=== PATIENT | male | born 1960 | race Hispanic/Latino ===

== ENCOUNTER 2019-12-19 06:44 | Observation (INO) | payer OTHER ==
[2019-12-16 09:42] VITALS: BMI 37.8
[2019-12-19 07:42] LABS: #Eosinphils 0.3 thou/uL (0.0-0.7); #Lymphocytes 1.4 thou/uL (1.20-3.40); #Monocytes 0.6 thou/uL (0.11-0.59); %Basophils 0.4 % (0.0-1.0); %Eosinophils 3.9 % (0.0-10.0); %Lymphocytes 19.4 % (21.0-51.0); %Monocytes 7.8 % (0.0-10.0); %Neutrophils 68.6 % (42.0-75.0); Hemoglobin 13.3 g/dL (14.0-18.0); Mean Corpuscular HGB CONC 34.3 g/dL (32.0-36.0); Mean Corpuscular Hemoglobin 30.9 pg (27.0-31.0); Mean Corpuscular Volume 90.3 fL (78.0-98.0); Mean Platelet Volume 8.6 fL (7.4-10.4); Platelet Count 191 thou/uL (130-400); RBC Distribution Width 12.5 % (11.5-14.5); White Blood Cell (WBC) Count 7.2 thou/uL (4.8-10.8)
[2019-12-19 07:55] LABS: Anion Gap 9 mmol/L (10-20); BUN (Urea Nitrogen) 14 mg/dL (8.4-25.7); Calc. Creatinine Clearance 97 mL/min (70-130); Calcium 9.1 mg/dL (7.8-10.44); Carbon Dioxide 26 mmol/L (22-29); Chloride 107 mmol/L (98-107); Estimated GFR-MDRD 64; Glucose 105 mg/dL (70-105); Potassium 4.2 mmol/L (3.5-5.1); Sodium 138 mmol/L (136-145)
[2019-12-19] MEDS ORDERED: Famotidine/PF 20 mg/2ml Vial ONE (08:28)
[2019-12-19] MEDS ORDERED: Midazolam HCl 2 mg/2 ml Vial ONE ×2 (08:36→09:18)
[2019-12-19] MEDS ORDERED: Scopolamine 1.5 mg/72 hour Patch ONE (08:36)
[2019-12-19] MEDS ORDERED: Sodium Chloride 0.9% 10 ML ONE (08:55)
[2019-12-19] MEDS ORDERED: Fentanyl 100 MCG/2 ML VIAL ONE ×4 (09:18→12:09)
[2019-12-19] MEDS ORDERED: Dexamethasone 20 MG/5 ML VIAL ONE (10:27)
[2019-12-19] MEDS ORDERED: PROPOFOL 200 MG/20 ML VIAL ONE (10:27)
[2019-12-19] MEDS ORDERED: Ondansetron PF 4 MG/2 ML Vial ONE (10:27)
[2019-12-19] MEDS ORDERED: Glycopyrrolate 0.2 MG/ML 5 ML SYRINGE ONE (10:27)
[2019-12-19] MEDS ORDERED: Rocuronium Bromide 10 MG/ML (10ML VIAL) ONE (10:27)
--- NOTE | 2019-12-19 10:59 | OP ---
DATE OF PROCEDURE: 12/19/2019 SLITTER SERVICE AND SETTER: Carole Coleman PA-C PROCEDURES PERFORMED: Anterior cervical diskectomy C4-C5, interbody arthrodesis, intervertebral biomechanical device, local morselized autograft, demineralized bone matrix, anterior titanium instrumentation, C4-C5. DESCRIPTION OF PROCEDURE: The patient was brought to the operating room and intubated. He was positioned supine with the head in modest extension on a gel-filled donut. An incision was made in the right precervical area and dissected medial to the sternocleidomastoid muscle. We identified the anterior cervical spine, and the level was confirmed by x-ray. We debrided the anterior osteophytes, placed distraction across the disk space, and completely decompressed the intervertebral disk. The bony endplates were then decorticated for the purpose of arthrodesis and appropriate-sized intervertebral biomechanical PEEK device was brought into the field. It was filled with demineralized bone matrix, local morselized autograft, and tapped in place securely at C4-C5. Next, an anterior plate was brought into the field and secured to C4 and C5 using two 14-mm screws at each level. The wound was then extensively irrigated and MAC hemostasis was secured and the wound was closed in anatomic layers over drain. Job ID: [id number]
[2019-12-19] MEDS ORDERED: Promethazine HCl 25 MG/ML VIAL IM PRN (11:13)
[2019-12-19] MEDS ORDERED: Morphine 2 MG/ML SYRINGE SLOW IVP PRN (11:13)
[2019-12-19] MEDS ORDERED: HYDROcodone/Acetaminophen 10/325 mg Tablet PO PRN (11:13)
[2019-12-19] MEDS ORDERED: Morphine 4 MG/ML VIAL SLOW IVP PRN (11:13)
[2019-12-19] MEDS ORDERED: traMADol HCl 50 MG TAB PO PRN ×2 (11:13)
[2019-12-19] MEDS ORDERED: Promethazine 25 MG TAB PO PRN (11:13)
[2019-12-19] MEDS ORDERED: Promethazine HCl 12.5 MG SUPP PR PRN (11:13)
[2019-12-19] MEDS ORDERED: Mag-Al 1200 mg/1200 mg/30 ML UDCUP PO PRN (11:13)
[2019-12-19] MEDS ORDERED: diphenhydrAMINE 50 MG/ML VIAL IVP PRN (11:13)
[2019-12-19] MEDS ORDERED: Cyclobenzaprine 10 MG TAB PO PRN (11:13)
[2019-12-19] MEDS ORDERED: diphenhydrAMINE 25 MG CAP PO PRN (11:13)
[2019-12-19] MEDS ORDERED: Ondansetron PF 4 MG/2 ML Vial IVP PRN (11:13)
[2019-12-19] MEDS ORDERED: CIALIS 5 MG PO PRN (11:22)
[2019-12-19] MEDS ORDERED: HYDROmorphone 0.5 MG/0.5 ML SYRINGE ONE ×2 (11:28→11:44)
[2019-12-19] MEDS: Sodium Chloride 0.9% 1,000 ML IV SCH ×2 (12:52→23:37)
[2019-12-19] MEDS: Cyclobenzaprine 10 MG TAB PO SCH ×2 (15:22→20:24)
[2019-12-19] MEDS: CEFAZOLIN 2 GM in Premix Bag 1 BAG IVPB SCH ×2 (16:40→23:10)
[2019-12-19] MEDS: HYDROcodone/Acetaminophen 10/325 mg Tablet PO PRN ×2 (18:03→23:09)
[2019-12-20] MEDS ORDERED: Tamsulosin HCl 0.4 MG CAP PO SCH (06:00)
[2019-12-20 08:40] VITALS: BP 142/80; TEMP 98
[2019-12-20] MEDS: Cyclobenzaprine 10 MG TAB PO SCH (08:48)
[2019-12-20] MEDS: Losartan 25 MG TAB PO SCH ×2 (08:49→08:52)
[2019-12-20] MEDS: CEFAZOLIN 2 GM in Premix Bag 1 BAG IVPB SCH (08:49)
--- NOTE | 2019-12-20 11:28 | DIS ---
DATE OF ADMISSION: 12/19/2019 DATE OF DISCHARGE: 12/20/2019 The patient is a 59-year-old male, recently evaluated in our office for progressive neck and shoulder pain. 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 Following the surgery, he was transitioned to the Med/Surg floor, where his pain has been well-controlled with p.o. medications, he is tolerating a regular diet, and he is voiding appropriately. He did have CECE drain placed intraoperatively and had only 10 mL out over the first night. I visited the patient at the bedside on postoperative day #1. He is awake, alert, in no acute distress. He is getting up and down and walking easily in the halls. His vital signs have been stable and he is afebrile. He has free active range of motion of all extremities. No focal motor weakness. He reports his symptoms are significantly improved. We will plan to dismiss the patient to home. I have discussed home care and precautions and will follow up with the patient in 2 weeks. CECE drain will be removed prior to discharge. He will be sent home with scripts for [facility] and Zanaflex. I checked [employer] prior to admission and there were no scripts discrepancies. Job ID: [id number]
--- NOTE | 2019-12-20 11:33 | EKG ---
Test Reason : PREOP Blood Pressure : / mmHG Vent. Rate : 070 BPM Atrial Rate : 070 BPM P-R Int : 164 ms QRS Dur : 086 ms QT Int : 396 ms P-R-T Axes : 039 -02 013 degrees QTc Int : 427 ms Normal sinus rhythm Minimal voltage criteria for LVH, may be normal variant Borderline ECG No previous ECGs available Confirmed by DR. Dillon WHITTEN MD ([id number]) on 12/20/2019 11:33:14 AM Referred By: MARY ANN Confirmed By:DR. Dillon WHITTEN MD
== END 2019-12-20 09:24 | disposition home or self-care (01) ==
LOC: SDC 06:44 → SURG A 12:20
PROVIDERS: ADMIT Neurological Surgery; ATTEND Neurological Surgery
PROC: 0RG10A0 Fusion of Cervical Vertebral Joint with Interbody Fusion Device, Anterior Approach, Anterior Column, Open Approach (ICD-10-PCS; principal; 2019-12-19)
PROC: 0RT30ZZ Resection of Cervical Vertebral Disc, Open Approach (ICD-10-PCS; 2019-12-19)
DX: M47.22 Other spondylosis with radiculopathy, cervical region (principal); I10 Essential (primary) hypertension; K21.9 Gastro-esophageal reflux disease without esophagitis; G47.30 Sleep apnea, unspecified; M19.90 Unspecified osteoarthritis, unspecified site; F41.9 Anxiety disorder, unspecified; Z87.891 Personal history of nicotine dependence; Z79.82 Long term (current) use of aspirin; Z79.899 Other long term (current) drug therapy; Z88.8 Allergy status to other drugs, medicaments and biological substances; Z99.89 Dependence on other enabling machines and devices
CPT/HCPCS: 36415; 76000; 80048; 85025; 93005; 93010; 96361; 96365; 96376; C1713; C1776; G0378; J0690; J1100; J1170; J2250; J2405; J2704; J3010; J3490; S0028